=== PATIENT | male | born 1975 | race Caucasian/White ===

== ENCOUNTER 2022-01-02 16:00 | Outpatient (RCR) | payer OTHER, SELFPAY ==
--- NOTE | 2021-11-22 09:01 | MHC.PT.EP ---
[facility] [place] Office [place] Office [address] Abhijit Ronquillo [address] [phone] F: [phone] F: [phone] F: [phone] F: [phone] Physical Therapy Plan of Care Date of Evaluation: Date of Surgery: n/a Diagnosis: R side lumbago with sciatica Assessment: Patient is a 46 year old male presenting to PT with complaints of pain in R low back extending down his R leg. Pt reports onset of pain began September 2021 due to insidious onset - woke up with pain one day. He presents today with impairments in pain, lumbar ROM, hip strength, core strength, posture, and numbness and tingling. Pt's current occupation is at [employer], with baseline physical activities including ADLs, sitting, bending, lifting, work. 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 Clinical presentation today is most consistent with signs and sx associated with low back pain with possible disc involvement and pt will benefit from skilled PT to address the following problems and impairments noted upon evaluation: pain, lumbar ROM, hip strength, core strength, posture, and numbness and tingling. These problems limit the patient with the following functional activities: bending, lifting, ADLs, sitting, work. The prescribed treatment plan of care is medically necessary. Co-morbidities of none were identified and taken into considerations of plan of care. Pt was educated on HEP, role of PT, prognosis, POC, lumbar anatomy. Frequency and Duration: The patient will be seen 2 x week x 5 weeks Short Term Goals: Pt will demonstrate centralization of sx in 3 weeks for improved QOL. Pt will demonstrate ability to perform PPT with good TA recruitment in 3 weeks for improved core strength. Pt will demonstrate hip strength of at least 4+/5 for good lumbopelvic stability in 3 weeks. Penitentiary Goals: Pt will demonstrate ability to sit x 20 min with min to no pain or sx in 5 weeks for improved ability to drive to work. Pt will demonstrate ability to put on socks and dress LE without help from in 5 weeks for improved independence with self care. Pt will demonstrate improved Bronwyn score to <15% disability in 5 weeks for improved overall functional mobility. Pt will demonstrate ability to bend and lift with min to no pain or sx in 5 weeks for return to PLOF. Treatment Plan: Modalities to reduce pain, spasms and effusion. Manual therapy to restore motion and function. Therapeutic exercise to improve strength and flexibility. Neuromuscular re-education for posture and balance. Therapeutic activities to return to functional activities of daily living. Electronically signed by: Rosa Maria Rome, PT, DPT, ATC Please sign and return to therapist. Thank you for your referral.
--- NOTE | 2022-01-02 17:13 | MHC.PT.DC ---
[facility] [place] Office [place] Office [place] Office [address] Abhijit Ronquillo [address] [phone] F: [phone] F: [phone] F: [phone] F: [phone] Physical Therapy Discharge Report Diagnosis: R side lumbago with sciatica Date of Surgery: n/a Date of Evaluation: 11/22/21 Date of Discharge: 01/02/22 Treatments to Date: 10 Cancellations to Date: 3 No Shows to Date: 0 Discharge Status: Recommend MD Follow-up Discharge Summary: Pt has unfortunately made little to no progress since starting PT. He has been compliant with attending his appointments and with his HEP. He continues to have varying levels of pain which become severe at times and do not appear to respond to any treatment interventions in PT. We have trialed multiple different treatment interventions without success. Pt has recently seen an ortho who has ordered an MRI and this is currently pending. At this time max benefits of PT have been provided and skilled PT is no longer indicated at this time. Pt may benefit from PT in the future for core stability training once pain is better managed. Pt is in agreement with plan to d/c today and attend follow up appointments with ortho. Electronically signed by: Rosa Maria Rome, PT, DPT, ATC Please sign and return to therapist. Thank you for your referral.
== END 2022-01-02 17:13 | disposition home or self-care (01) ==
LOC: HO.PTCHIC 16:00
PROVIDERS: PCP Internal Medicine; Visit Provider Internal Medicine
DX: M54.41 Lumbago with sciatica, right side (principal)
CPT/HCPCS: 97014; 97110; 97140; 97161

== ENCOUNTER 2023-08-01 13:59 | Outpatient (AMB) | payer OTHER, SELFPAY ==
--- NOTE | 2023-08-01 14:10 | MHC.PC.OV ---
Vital Signs 08/01/23 14:22 Height 5 ft 11 in Weight 150 lb BMI 20.9 BP 108/64 Blood Pressure Location Lt brachial Position Sitting Pulse 62 Pulse Source Pulse Oximeter Pulse Oximetry (%) 99 Oxygen Delivery Method Room Air Intake Visit Reasons: Annual PE/GI referral Intake Note: Pt is here today for PE. Allergies No Known Allergies Allergy (Verified 08/01/23 14:24) Tobacco use date assessed: 08/01/23 Dental Screening Dental Screen Date: 08/01/23 Did you have a dental visit in the last 12 months?: Yes Did you have a dental problem in the last 6 months where you did not have access to dental care?: No Was dental information given to patient?: Patient has dentist HPI Annual PE/GI referral HPI Details Pt presents for PE. [facility] Medical History (Updated 08/01/23 @ 14:54 by Luciana Beckman MD) Weakness of right foot Lumbago with sciatica, right side Annual physical exam Surgical History H/O knee surgery Family History Father Lung cancer Mother COPD (chronic obstructive pulmonary disease) Social History Housing: House Patient Tobacco Use Status: Former Tobacco user (20 years ) e-Cigarette/Vaping Use: Never Used Current occupational status: employed Cognitive needs: No Hearing needs: No Vision needs: No Questionnaire PHQ-9 Over the last 2 weeks, how often have you been bothered by any of the following problems? 1. Little interest or pleasure in doing things: not at all 2. Feeling down, depressed, or hopeless: not at all 3. Trouble falling or staying asleep, or sleeping too much: not at all 4. Feeling tired or having little energy: several days 5. Poor appetite or overeating: several days 6. Feeling bad about yourself - or that you are a failure or have let yourself or your family down: not at all 7. Trouble concentrating on things, such as reading the newspaper or watching television: not at all 8. Moving or speaking so slowly that other people could have noticed. Or the opposite - being so fidgety or restless that you have been moving around a lot more than usual: not at all 9. Thoughts that you would be better off or of hurting yourself in some way: not at all Total score: 2 Depression Screening Interpretation: Negative Depression Screening Done: Yes Source: Developed by Drs. Yury Caruso, Pina Fall, Meek Parr and colleagues, with an educational chad from [employer]. Thrive Questionnaire Date Thrive assessed: 08/01/23 I am a: Patient What is your living situation today?: I have a steady place to live Within the past 12 months, did the food you bought not last and you didn't have the money to get more?: Never true Within the past 12 months, did you worry whether your food would run out before you got money to buy more?: Never true Do you have trouble paying for medicines?: No Do you have trouble getting transportation to medical appointments?: No Do you have trouble paying your heating and electricity bill?: No Do you have trouble taking care of your child, family member or friend?: No Do you have trouble with day-to-day activities such as bathing, preparing meals, shopping, managing finances, etc.?: No Are you currently unemployed and looking for a job?: No Are you interested in more education?: No Please select the resources that you would like help with: None Currently or been in a relationship where the following occur: no concerns reported AUDIT C Alcohol Use Questionnaire (AUDIT-C) 1. How often do you have a drink containing alcohol?: Never 3. How often do you have six or more drinks on one occasion?: Never Total Score: 0 MIKAYLA-7 AMB Questionnaire MIKAYLA-7 Date MIKAYLA - 7 assessed: 08/01/23 Feeling nervous, anxious, or on edge: 0 = Not at all Not being able to stop or control worryin = Not at all Worrying too much about different things: 0 = Not at all Trouble relaxin = Not at all Being so restless that it is hard to sit still: 0 = Not at all Becoming easily annoyed or irritable: 0 = Not at all Feeling afraid as if something awful might happen: 0 = Not at all Total MIKAYLA-7 score (0-4 normal; 5-9 mild; 10-14 moderate; 15-21 severe): 0 Source: Developed by Drs. Yury Caruso, Pina Fall, Meek Parr and colleagues, with an educational chad from [employer]. Review of Systems Const All systems reviewed & are unremarkable except as noted in HPI and below Reports no additional complaints Eyes Reports no additional complaints ENT Reports no additional complaints Card Reports no additional complaints Resp Reports no additional complaints GI Reports no additional complaints Physical exam (Primary Care) Vital Signs: Last Vital Signs Pulse 62 08/01/23 14:22 BP 108/64 08/01/23 14:22 Pulse Ox 99 08/01/23 14:22 Oxygen Delivery Method Room Air 08/01/23 14:22 BMI result Body Mass Index 20.9 Tobacco/Smoking Status: Tobacco use Status Tobacco use date assessed 08/01/23 08/01/23 14:26 Patient Tobacco Use Status Former Tobacco user (20 08/01/23 14:10 years ) e-Cigarette/Vaping Use Never Used 08/01/23 14:10 PHQ-9: PHQ-9 Score PHQ-9: Total score 2 08/01/23 14:27 Depression Screening Interpretation: Negative Thrive Assessment: Date of Thrive Assessment Date Thrive assessed 08/01/23 08/01/23 14:27 Currently or been in a relationship where the following occur: no concerns reported Const General: no acute distress HENMT Head: Yes normal to inspection Ears: hearing grossly normal bilaterally Face and sinus: Yes normal facial exam Mouth: Normal oral and palatal mucosa present Eyes General: appearance normal, both eyes and all related structures Neck Neck: Yes no lymphadenopathy and Yes supple Resp Effort & Inspection: normal respiratory effort Auscultation: clear to auscultation bilaterally Cardio Rhythm: regular rhythm Heart sounds: S1 normal heart sound present and S2 normal heart sound present GI Inspection: Yes normal to inspection Palpation (GI): Soft to palpation Percussion: Yes normal to percussion Auscultation: normal bowel sounds Assessment and Plan Assessment & Plan (1) Lumbago with sciatica, right side: Comment: s/p discectomy L5-S1, 2021 NEOS Code(s): M54.41 - Lumbago with sciatica, right side (2) Annual physical exam: Code(s): Z00.00 - Encounter for general adult medical examination without abnormal findings Plan: Well-balanced diet regular exercise discussed with the patient ,he will return for fasting blood work and will be referred for colonoscopy Orders: Referrals Gastroenterology Referral Z00.00 - Encounter for general adult medical examination without abnormal findings Coding Level of Care Code Est Pt Prev Care 40-64y(91982) Diagnoses Lumbago with sciatica, right side M54.41 Annual physical exam Z00.00
[2023-08-01 14:22] VITALS: BP 108/64; PULSE 62; O2SAT 99; BMI 20.9
== END 2023-08-01 14:59 | disposition home or self-care (01) ==
PROVIDERS: PCP Internal Medicine; Visit Provider Internal Medicine
DX: M54.41 Lumbago with sciatica, right side (principal); Z00.00 Encounter for general adult medical examination without abnormal findings
CPT/HCPCS: 99396

== ENCOUNTER 2025-07-06 07:34 | Outpatient (REF) | payer OTHER, SELFPAY ==
[2025-07-06 10:15] LABS: MANUAL DIFF FLAG NO
[2025-07-06 10:29] LABS: Appearance Urine Clear; Glucose Urine UA Negative (Negative); PH 5.5 (5.0-9.0); Specific Gravity - Urine 1.020 (1.005-1.025)
[2025-07-06 10:37] LABS: Hematocrit 43.5 % (42.0-52.0); Hemoglobin 15.1 g/dl (14.0-18.0); Imm Gran Abs Auto 0.02 X10*3/uL (0.00-0.03); Imm Gran Pct Auto 0.5 % (0.0-0.4); Lymphocytes Absolute Auto 1.5 X10*3/uL (1.2-4.9); Mean Corpuscular HGB Conc 34.7 g/dl (31.0-36.0); Mean Corpuscular Hemoglobin 30.8 pg (27.0-33.0); Mean Corpuscular Volume 88.8 fL (80.0-98.0); NRBC Abs Auto 0.000 X10*3/uL (0.0-0.012); NRBC Pct Auto 0.0 /100WBC (0.0-0.2); Platelet Count 227 X10*3/uL (160-400); Red Blood Count 4.90 X10*6/uL (4.60-5.80); White Blood Count 4.4 X10*3/uL (4.8-10.8)
[2025-07-06 10:57] LABS: Alanine Aminotransferase 28 U/L (0-40); Albumin Level 4.6 g/dL (3.5-5.0); Alkaline Phosphatase 63 U/L (39-117); Anion Gap 13 (12-20); Aspartate Amino Transferase 26 U/L (5-37); Blood Urea Nitrogen 17 mg/dL (9-16); Calcium 9.7 mg/dL (8.4-10.2); Carbon Dioxide 27 mmol/L (22-29); Chloride 105 mmol/L (96-108); Cholesterol 207 mg/dL (<200); Estimated Glomerular Filt Rate > 60; HDL Cholesterol 65 mg/dL (>40); Potassium 4.2 mmol/L (3.3-5.1); Sodium 141 mmol/L (135-145); Total Protein 7.0 g/dL (6.5-8.0); Triglycerides 69 mg/dL (<150)
== END 2025-07-06 07:35 | disposition home or self-care (01) ==
LOC: HO.HMGCLDS 07:34
PROVIDERS: PCP Internal Medicine; Visit Provider Internal Medicine
DX: Z00.00 Encounter for general adult medical examination without abnormal findings (principal); Z13.0 Encounter for screening for diseases of the blood and blood-forming organs and certain disorders involving the immune mechanism; Z13.6 Encounter for screening for cardiovascular disorders
CPT/HCPCS: 36415; 80053; 80061; 81001; 85025

== ENCOUNTER 2025-07-07 11:55 | Outpatient (AMB) | payer OTHER, SELFPAY ==
[2025-07-07 12:17] VITALS: BP 104/70; PULSE 66; RESP 15; TEMP 36.9; O2SAT 96; BMI 21.8
--- NOTE | 2025-07-07 12:17 | MHC.PC.OV ---
Vital Signs 07/07/25 12:17 Height 5 ft 11 in Weight 156 lb BMI 21.8 BP 104/70 Blood Pressure Location Lt brachial Position Sitting Respiration 15 Pulse 66 Pulse Source Pulse Oximeter Temp 98.5 F Temp Source Oral Pulse Oximetry (%) 96 Oxygen Delivery Method Room Air Intake Visit Reasons: Annual PE Intake Note: Pt is here today for PE. Allergies No Known Allergies Allergy (Verified 07/07/25 12:22) Medication List - Last Reconciled 07/07/25 by Luciana Beckman MD No Known Home Meds Tobacco use date assessed: 07/07/25 Dental Screening Dental Screen Date: 07/07/25 Did you have a dental visit in the last 12 months?: Yes Did you have a dental problem in the last 6 months where you did not have access to dental care?: No Was dental information given to patient?: Patient has dentist HPI Annual PE HPI Details Pt presents for PE. Pt complains of chronic R knee pain and stiffness worse when walking but also at rest. Patient had right knee surgery many years ago. He would like to see orthopedic surgeon at [facility] for evaluation. [facility] Medical History (Updated 07/07/25 @ 14:55 by Luciana Beckman MD) Knee pain, right Weakness of right foot Lumbago with sciatica, right side Annual physical exam Surgical History Hx of colonoscopy H/O knee surgery Family History Father Lung cancer Mother COPD (chronic obstructive pulmonary disease) Dementia Social History Housing: House Patient Tobacco Use Status: Former Tobacco user e-Cigarette/Vaping Use: Never Used service: No Current occupational status: employed Cognitive needs: No Hearing needs: No Vision needs: No Questionnaire PHQ-9 Over the last 2 weeks, how often have you been bothered by any of the following problems? 1. Little interest or pleasure in doing things: not at all 2. Feeling down, depressed, or hopeless: not at all 3. Trouble falling or staying asleep, or sleeping too much: not at all 4. Feeling tired or having little energy: several days 5. Poor appetite or overeating: not at all 6. Feeling bad about yourself - or that you are a failure or have let yourself or your family down: not at all 7. Trouble concentrating on things, such as reading the newspaper or watching television: not at all 8. Moving or speaking so slowly that other people could have noticed. Or the opposite - being so fidgety or restless that you have been moving around a lot more than usual: not at all 9. Thoughts that you would be better off or of hurting yourself in some way: not at all Total score: 1 Depression Screening Interpretation: Negative Depression Screening Done: Yes 32086 - PHQ-9 Billing: Yes Source: Developed by Drs. Yury Caruso, Pina Fall, Meek Parr and colleagues, with an educational chad from [employer]. Thrive Questionnaire Date Thrive assessed: 07/07/25 I am a: Patient What is your living situation today?: I have a steady place to live Within the past 12 months, did the food you bought not last and you didn't have the money to get more?: I choose not to answer this question Within the past 12 months, did you worry whether your food would run out before you got money to buy more?: I choose not to answer this question Do you have trouble paying for medicines?: I choose not to answer this question Do you have trouble getting transportation to medical appointments?: I choose not to answer this question Do you have trouble paying your heating and electricity bill?: I choose not to answer this question Do you have trouble taking care of your child, family member or friend?: I choose not to answer this question Do you have trouble with day-to-day activities such as bathing, preparing meals, shopping, managing finances, etc.?: I choose not to answer this question Are you currently unemployed and looking for a job?: I choose not to answer this question Are you interested in more education?: I choose not to answer this question Please select the resources that you would like help with: None Currently or been in a relationship where the following occur: I choose not to answer THRIVE Score: 0 AUDIT C Alcohol Use Questionnaire (AUDIT-C) 1. How often do you have a drink containing alcohol?: Monthly or less 2. How many drinks containing alcohol do you have on a typical day when you are drinking?: 1 or 2 3. How often do you have six or more drinks on one occasion?: Never Total Score: 1 MIKAYLA-7 AMB Questionnaire MIKAYLA-7 Date MIKAYLA - 7 assessed: 07/07/25 Feeling nervous, anxious, or on edge: 1 = Several days Not being able to stop or control worryin = Not at all Worrying too much about different things: 1 = Several days Trouble relaxin = Several days Being so restless that it is hard to sit still: 0 = Not at all Becoming easily annoyed or irritable: 1 = Several days Feeling afraid as if something awful might happen: 0 = Not at all Total MIKAYLA-7 score (0-4 normal; 5-9 mild; 10-14 moderate; 15-21 severe): 4 Source: Developed by Drs. Yury Caruso, Pina Fall, Meek Parr and colleagues, with an educational chad from [employer]. MIKAYLA-7 Assessment Billing MIKAYLA-7 Assessment Tool: MIKAYLA-7 Assessment 25859 Review of Systems Const All systems reviewed & are unremarkable except as noted in HPI and below Eyes Reports no additional complaints ENT Reports no additional complaints Card Reports no additional complaints Resp Reports no additional complaints GI Reports no additional complaints Reports no additional complaints Physical exam (Primary Care) Vital Signs: Last Vital Signs Temp 98.5 F 07/07/25 12:17 Pulse 66 07/07/25 12:17 Resp 15 07/07/25 12:17 BP 104/70 07/07/25 12:17 Pulse Ox 96 07/07/25 12:17 Oxygen Delivery Method Room Air 07/07/25 12:17 BMI result Body Mass Index 21.8 Tobacco/Smoking Status: Tobacco use Status Tobacco use date assessed 07/07/25 07/07/25 12:26 Patient Tobacco Use Status Former Tobacco user 07/07/25 12:17 e-Cigarette/Vaping Use Never Used 07/07/25 12:17 PHQ-9: PHQ-9 Score PHQ-9: Total score 1 07/07/25 12:54 Depression Screening Interpretation: Negative Thrive Assessment: Date of Thrive Assessment Date Thrive assessed 07/07/25 07/07/25 12:26 Currently or been in a relationship where the following occur: I choose not to answer Const General: no acute distress HENMT Head: Yes normal to inspection Ears: TM's normal bilaterally General nose exam: Normal external nose present Face and sinus: Yes normal facial exam Mouth: Normal oral and palatal mucosa present Eyes General: appearance normal, both eyes and all related structures Neck Neck: Yes no lymphadenopathy and Yes supple Resp Effort & Inspection: normal respiratory effort Auscultation: clear to auscultation bilaterally Cardio Rhythm: regular rhythm Heart sounds: S1 normal heart sound present and S2 normal heart sound present GI Inspection: Yes normal to inspection Palpation (GI): Soft to palpation Percussion: Yes normal to percussion Auscultation: normal bowel sounds Extrem Other: There is decreased range of motion crepitus of both right more than left, no soft tissue or erythema General: Yes no clubbing, cyanosis or edema Coding Level of Care Code Est Pt Prev Care 40-64y(19005) Diagnoses Knee pain, right M25.561 Annual physical exam Z00.00 Additional Codes MIKAYLA-7 Assessment Billing - MIKAYLA-7 Assessment Tool: MIKAYLA-7 Assessment 45758 ([id number]) PHQ-9 - 03988 - PHQ-9 Billing: Yes ([id number]) Assessment & Plan Assessment & Plan (1) Knee pain, right: Code(s): M25.561 - Pain in right knee Category: Medical Plan: Referred to [place] orthopedic surgeons (2) Annual physical exam: Code(s): Z00. - Encounter for general adult medical examination without abnormal findings Category: Medical Plan: Well-balanced diet regular physical activity discussed with the patient he will return in 1 year with a fasting labs before Orders: Orders Comprehensive Wray. Panel Fast 1 Year Z00.00 - Encounter for general adult medical examination without abnormal findings Lipid Panel 1 Year Z00.00 - Encounter for general adult medical examination without abnormal findings UA w Microscopic 1 Year Z00.00 - Encounter for general adult medical examination without abnormal findings Complete Blood Count Auto Diff 1 Year Z00.00 - Encounter for general adult medical examination without abnormal findings Referrals Orthopedics Referral M25.561 - Pain in right knee
== END 2025-07-07 15:00 | disposition home or self-care (01) ==
LOC: HO.HMCC 11:56
PROVIDERS: PCP Internal Medicine; Visit Provider Internal Medicine
DX: Z00.00 Encounter for general adult medical examination without abnormal findings (principal); M25.561 Pain in right knee

== ENCOUNTER → 2025-07-07 11:55 | Outpatient (BNVA) | payer OTHER, SELFPAY | PROVIDERS: PCP Internal Medicine; Visit Provider Internal Medicine | DX: Z00.00 Encounter for general adult medical examination without abnormal findings (principal); M25.561 Pain in right knee | CPT/HCPCS: 96127 ==